=== PATIENT | male | born 1980 | race Caucasian/White ===

== ENCOUNTER 2023-11-28 15:05 | Emergency (ER) | payer OTHER, SELFPAY ==
--- NOTE | ~2023-11-28 | XR_ITS ---
EXAMINATION: XR clavicle RT DATE: 11/28/2023 15:42 INDICATION: Right clavicle injury post fall TECHNIQUE: AP and angled AP view of the right clavicle were obtained. COMPARISON: None. FINDINGS: There is a comminuted mid diaphyseal fracture of the right clavicle. There is 2.5 cm overriding of th e main medial and lateral fragments. The medial fragment is elevated by 2.5-3 similar relative to the lateral fragment There are 3 displaced and angulated intervening fragments, the largest of these ankita suring 4.2 cm in length. Right acromioclavicular joint space is normal. 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 Visualized portions of the lungs are clear. IMPRESSION: 1. Comminuted and displaced mid diaphyseal fracture of the right clavicle. Reviewed, dictated and finalized at location A.
[2023-11-28 15:24] VITALS: BP 142/83; PULSE 73; RESP 18; TEMP 36.9; O2SAT 100
--- NOTE | 2023-11-28 17:10 | ED.GENADULT ---
HPI - General Adult General Chief complaint: Fall Stated complaint: R Collar bone Time Seen by Provider: 11/28/23 16:26 History of Present Illness HPI narrative: Gavino Rousseau is a 43 y/o male who presents with reports of having a same level fall on to his right clavicle and now having pain to that area. Related Data Allergies Allergy/AdvReac Type Severity Reaction Status Date / Time No Known Allergies Allergy Verified 07/10/19 11:30 Review of Systems Review of Systems: All systems reviewed & are unremarkable except as noted in HPI and below PMFSH Social History Social History Gender identity (if verbalized by the patient): Male Exam Narrative: GENERAL: Well-appearing, well-nourished, and in no acute distress. HEAD: Normocephalic, atraumatic. EYES: PERRLA and EOMI. ENT: Nares clear, no rhinorrhea or epistaxis. Mucous membranes moist. Oropharynx without tonsillar hypertrophy exudate or other lesions. NECK: Supple. No adenopathy or masses. No carotid bruits or JVD CHEST: Clear to auscultation. No respiratory distress. No wheezes rales or rhonchi HEART: Regular rate and rhythm. No murmur heard. Normal peripheral pulses. ABDOMEN: Soft, nontender, nondistended, normal active bowel sounds. EXTREMITIES: Mild swelling over the right mid clavicle SKIN: Warm, dry, no rash. NEURO: No focal deficits. Alert and oriented x3. PSYCH: Normal mood and affect. Course Vital Signs Vital signs: Vital Signs Temperature 36.9 C 11/28/23 15:24 Pulse Rate 73 11/28/23 15:24 Respiratory Rate 18 11/28/23 15:24 Blood Pressure 142/83 H 11/28/23 15:24 Pulse Oximetry 100 11/28/23 15:24 Oxygen Delivery Room Air 11/28/23 15:24 Temperature 36.9 C 11/28/23 15:24 Pulse Rate 72 11/28/23 17:38 Respiratory Rate 16 11/28/23 17:38 Blood Pressure 136/81 11/28/23 17:38 Pulse Oximetry 100 11/28/23 17:38 Oxygen Delivery Room Air 11/28/23 15:24 Medical Decision Making [facility] Narrative Medical decision making narrative: 43 y/o male presents with pain to right clavicle after a ground level mechanical fall. Denies LOC / XR ?Comminuted and displaced mid diaphyseal fracture of the right clavicle. Right displaced clavicle fracture noted on xr - pt placed in arm sling and given pain medication Distal pulses present Neurovascular intact Plan to D/c with Naproxen BID/ [place] for severe pain VICENTE Close follow up with Orthopedic Return precautions provided Medical Records Medical records reviewed: Yes I reviewed the external patient's medical records. Vital Signs Vital Signs: Vital Signs Temperature 36.9 C 11/28/23 15:24 Pulse Rate 73 11/28/23 15:24 Respiratory Rate 18 11/28/23 15:24 Blood Pressure 142/83 H 11/28/23 15:24 Pulse Oximetry 100 11/28/23 15:24 Oxygen Delivery Room Air 11/28/23 15:24 Temperature 36.9 C 11/28/23 15:24 Pulse Rate 72 11/28/23 17:38 Respiratory Rate 16 11/28/23 17:38 Blood Pressure 136/81 11/28/23 17:38 Pulse Oximetry 100 11/28/23 17:38 Oxygen Delivery Room Air 11/28/23 15:24 Vitals reviewed by me. Imaging Data My impression: Impressions Clavicle X-Ray 11/28/23 15:44 IMPRESSION: 1. Comminuted and displaced mid diaphyseal fracture of the right clavicle. Discharge Plan Discharge Clinical Impression: Clavicle fracture, shaft Qualifiers: Encounter type: initial encounter Fracture type: closed Fracture alignment: displaced Laterality: right Qualified Code(s): S42.021A - Displaced fracture of shaft of right clavicle, initial encounter for closed fracture Patient Disposition: Home, Self-Care Condition: Stable Instructions: Antibiotic Form Additional Instructions: Continue to wear the arm sling Follow up with Orthopedics this week Continue to take Naproxen twice daily for pain You may take the [place] for severe pain Ice area of p
[2023-11-28] MEDS: NAPROXEN 500 MG TABLET PO (17:20)
[2023-11-28] MEDS: HYDROcodone/acetaminophen (*CRX) 5-325 MG TABLET 1 TAB PO (17:20)
[2023-11-28 17:38] VITALS: BP 136/81; PULSE 72; RESP 16; O2SAT 100
== END 2023-11-28 17:39 | disposition home or self-care (01) ==
PROVIDERS: Emergency Provider Nurse Practitioner Family; PCP Nurse Practitioner Family
DX: S42.021A Displaced fracture of shaft of right clavicle, initial encounter for closed fracture (principal); W18.30XA Fall on same level, unspecified, initial encounter
CPT/HCPCS: 73000; 99284; A4565; A9270

== ENCOUNTER 2023-12-04 00:25 | Day surgery (SDC) | payer OTHER, SELFPAY ==
[2023-11-30 11:02] VITALS: BMI 30.7
--- NOTE | 2023-11-30 11:04 | PC.NURSE ---
Report to the Outpatient Waiting Room, entrance under the green pavilion located off [facility], at time _1pm_ on date _[id number]_. Planned Procedure Time: _3pm_. Time changes happen often and if your time is changed the preop area will call you the afternoon before. - You and your visitor will be asked to self-screen and do not enter if you have any COVID symptoms. - A mask is optional within the hospital at this time. Patients may have clear liquids (water, carbonated beverages, clear teas, apple juice) until 3 hours prior to surgery with a maximum of 20 ounces. - No food from midnight until time of surgery Take the following medications with a SIP of water the morning of surgery: ____Percocet if needed. DO NOT STOP ANY OF YOUR OTHER PRESCRIPTION MEDICATIONS PRIOR TO SURGERY ?EXCEPT THE FOLLOWING Medications to discontinue per physician Nabumetone and Naproxen Date to take last dose___Stop now till after surgery. Please no make-up, nail salvadorean, hairspray, perfume, deodorant, or body powder the day of surgery. No jewelry (including any body piercings) or valuables the day of surgery, leave them at home. Please take a shower or bath the night before, or the morning of, surgery with an antibacterial soap. Wear comfortable, loose fitting clothing. - Jewelry must be removed prior to entering the operating room. Rings and piercings that are not removed may be cut off. - The hospital will not accept responsibility for valuables. - Please leave all valuables, including medications, at home the day of surgery. If you are going home after surgery, a licensed bicycle taxi driver must drive you home. - NO public transportation without another adult if you receive anesthesia. - We recommend that an adult stay with you for 24 hours following discharge. - We also recommend that you do not drive, make important decision, drink alcoholic beverages, or take any drugs that were not prescribed by your health care provider for at least 24 hours after your discharge time. Follow any additional instructions given to you from your surgeon. If you or anyone in your household have experienced Covid symptoms in the past week, please notify your surgeon or the nurse liaison at the phone number below for possible testing. Telephone instructions given to _Todd___and asked if any additional questions and then verbalized understanding. Patient advised to call surgeon office or pre surgery nurse liaison [phone] if any additional questions.
[2023-12-04] VITALS (8 sets, daily range): BP systolic 119–151; BP diastolic 79–96; PULSE 56–105; RESP 10–18; TEMP 36.3–37.7; O2SAT 94–100; BMI 30.2
--- NOTE | ~2023-12-04 | XR_ITS ---
EXAMINATION: XR surgery orthopedic DATE: 12/04/2023 16:47 INDICATION: ORIF right clavicle fracture TECHNIQUE: AP and 10 degree cephalad angled AP views of the right clavicle were obtained. COMPARISON: 11/28/2023 FINDINGS: Interval open reduction internal fixation of the prior comminuted and displaced right clavicle fractu re. Fracture is now fixed in near-anatomic alignment with a cephalad plate and screws. No other fract ures identified. Right acromioclavicular joint spaces are normal. Endotracheal tube tip 2.8 cm above the catherine. Mild opacities at the right lung base most likely atelectasis although differential inclu adolfo aspiration or pneumonia. IMPRESSION: 1. Near-anatomic alignment post open reduction plate and screw fixation of a comminuted extra-articul ar fracture of the right clavicle 2. Mild opacities at the right lung base which could represent atelectasis, aspiration or pneumonia. Reviewed, dictated and finalized at location A. IMPRESSION: 1. Near-anatomic alignment post open reduction plate and screw fixation of a co mminuted extra-articular fracture of the right clavicle 2. Mild opacities at the right lung base which could represent atelectasis, asp iration or pneumonia.
[2023-12-04] MEDS: LACTATED RINGERS 1,000 ML 30 ML IV CONT (12:45)
[2023-12-04] MEDS: ACETAMINOPHEN 500 MG TABLET 1000 MG PO (12:55)
[2023-12-04] MEDS: KETOROLAC 15 MG/ML VIAL (*BKC) IV PUSH (12:55)
--- NOTE | 2023-12-04 13:43 | WPDANESEPPF ---
Anes - Initial Pre Proc Eval Procedure: Operation Date: 12/04/23 14:15 Proposed Procedures p Open Reduction Internal Fixation Right Clavicle Fracture - Sarmad Oseguera MD Date/Time: 12/04/23 13:43 Surgeon: Sarmad Oseguera MD Pre Op Diagnosis: right midshaft displaced Clavicle Fracture Patient Data Age: 43 Gender: M Height: 1.68 m Weight: 85.1 kg Last Vital Signs Temp 99.9 F H 12/04/23 12:15 Pulse 59 L 12/04/23 12:15 Resp 16 12/04/23 12:15 BP 136/84 12/04/23 12:15 Pulse Ox 99 12/04/23 12:15 O2 Del Method Room Air 12/04/23 12:15 Allergies Allergy/AdvReac Type Severity Reaction Status Date / Time No Known Allergies Allergy Verified 12/04/23 12:59 Home Medications Medication Instructions Recorded Confirmed Type nabumetone 750 mg tablet 750 mg PO BID #20 tabs 07/10/19 12/04/23 Rx naproxen 500 mg tablet 500 mg PO BID #28 tabs 11/28/23 12/04/23 Rx eszopiclone 1 mg tablet 1 mg PO HS PRN Insomnia 11/30/23 11/30/23 History oxycodone-acetaminophen 5 mg-325 1 - 2 tablet PO Q4-6H PRN pain #40 11/30/23 12/04/23 Rx mg tablet (Percocet) tabs ropinirole 1 mg tablet 1 mg PO HS 11/30/23 11/30/23 History Patient hx anesthesia problems: none Family hx anesthesia problems: none Results Review: All pre-operative results and documents have been reviewed as part of the pre-operative evaluation. [facility] Past Medical History Medical History Closed right clavicular fracture (~11/28/23) Sleep apnea Social History Social History Smoking packs per day: 1.5 Smoking cigarettes per day: 30.0 Years smoked: 10 Smoking pack-years: 15.00 Smoking status: Former smoker Tobacco type: cigarettes Smoking end date: 11/29/13 Alcohol intake: former Substance use: former Substance use type: marijuana Other substance usage details: quit 2 weeks ago. Do You Feel Safe in your Home?: Yes Lack of Transportation: No Lack of Food: Never True Current Housing: I Have Housing Concerned About Future Housing: No Difficulty Paying Gas/Electric Bills: No Difficulty Paying for Meds: No Currently Unemployed: No Education: Bachelor's Degree Difficulty w/ Childcare or Family Care: No Living arrangements: with family Gender identity (if verbalized by the patient): Male Spiritual care concerns: No Anes - Eval Final PreProcedure Day of Procedure 12/04/23 13:43 Patient weight: normal Heart: regular rate and rhythm Lungs: clear to auscultation Airway: Mallampati scale and special considerations (Upper incisor is a cap. ) Neurological: alert and oriented Last oral intake: >/= 8 hours ASA classification: II Emergent: no Anesthetic plan: proceed Anesthesia type and monitoring: general ETT and standard monitoring Results Review: All pre-operative results and documents have been reviewed as part of the pre-operative evaluation. Pt is prev smoker, AILEEN on CPAP w excellent functional status. Informed Consent: The patient's anesthetic plan and its attendant risks and benefits were discussed with the patient/family/POA. Questions were solicited and answers provided to the satisfaction of the patient/family/POA.
--- NOTE | 2023-12-04 13:49 | WPDHPUPDATE1 ---
History and Physical Update Update Date/Time: 12/04/23 13:49 History and Physical has been reviewed, including an updated exam of the patient. There are NO changes in the patient's condition. Risks, benefits, and alternatives have been discussed and questions answered. Patient agrees to proceed with procedure.
[2023-12-04] MEDS: ceFAZolin 2 GM/D5W 50 ML 2 GM/50 ML BAG IVPB (14:13)
[2023-12-04] MEDS: BUPIVACAINE/EPINEPHRINE 0.5% 10 ML VIAL INFILTRATE (14:58)
[2023-12-04] MEDS: TRANEXAMIC ACID 1,000 MG/10 ML AMPUL 1000 MG IV PUSH (17:00)
--- NOTE | 2023-12-04 17:09 | P.OP_ITS ---
Procedure Note - Detailed Date of Procedure 12/04/23 Pre-op Diagnosis Right midshaft displaced Clavicle Fracture Post-op Diagnosis Same Procedure Performed ORIF right midshaft clavicle fracture. Surgeon Sarmad Oseguera MD Anesthesia General Findings Severe comminution. Limited bony contact. Bridge plating with lateral plate. Excellent bone quality. Description of Procedure The patient was given a general anesthetic. Preoperative antibiotics were administered. The patient was placed in the beach chair position. The shoulder was prepped and draped in usual sterile fashion exposing the clavicle widely. A transverse incision was created over the fracture site. Careful blunt dissection was brought down to the clavicle. The subcutaneous skin nerves were protected. Self-retaining retractors were placed. The fracture was cleared of hematoma and irrigated. Careful exposure of the fracture ends was accomplished without undue soft tissue stripping. The neurovascular structures were carefully protected throughout the procedure. Fracture was highly comminuted and and and contact was minimal. Near anatomic reduction was obtained with reduction forceps. The precontoured plate was applied. Excellent fixation was obtained with a combination of locking and nonlocking screws. Bridge plating technique was utilized across the comminuted middle segment. The lateral distal clavicle plate was selected to obtain secure lateral fixation. Postoperative x- ray confirmed appropriate screw lengths. The wound was irrigated and closed with layers using interrupted Vicryl and interrupted and running Monocryl suture followed by Steri-Strips. Sterile dressing was applied. The patient was brought to the recovery room in stable condition. There were no complications. Implants Acumed 10 hole distal lateral clavicle plate. Estimated Blood Loss 50 Drains No Packing No Pathology None sent Complications No immediate complications Condition Stable Disposition PACU [facility] Billing Surgery - Charge Forward: Surgery Billing
[2023-12-04] MEDS: ONDANSETRON INJ 4 MG/2 ML VIAL IV PUSH (17:28)
[2023-12-04] MEDS: fentaNYL CITRATE INJ (*CRX) 100 MCG/2 ML VIAL 25 MCG IV PUSH (17:46)
[2023-12-04] MEDS: oxyCODONE HCL (*CRX) 5 MG TAB IR PO (18:28)
== END 2023-12-04 18:50 | disposition home or self-care (01) ==
PROVIDERS: PCP Nurse Practitioner Family; Visit Provider Orthopaedic Surgery
PROC: (CPT 23515; principal; 2023-12-04 14:15)
DX: S42.021A Displaced fracture of shaft of right clavicle, initial encounter for closed fracture (principal); W01.0XXA Fall on same level from slipping, tripping and stumbling without subsequent striking against object, initial encounter; Z87.891 Personal history of nicotine dependence
CPT/HCPCS: 23515; 99199; A9270; C1713; J0690; J1100; J1170; J1885; J2250; J2405; J2704; J3010; J7120

== ENCOUNTER 2023-12-17 10:25 | Outpatient (CLI) | payer OTHER, SELFPAY ==
--- NOTE | ~2023-12-17 | XR_ITS ---
EXAM: XR clavicle RT DATE: 12/17/2023 10:54 HISTORY: Fracture of unspecified part of right clavicle F/U . COMPARISON: 11/28/2023. FINDINGS: Screw and plate fixation of the mildly comminuted right clavicular midshaft fracture into anatomic alignment. No hardware fracture or perihilar hardware lucency. No significant healing change s. The visualized lung parenchyma is clear IMPRESSION: Screw and plate fixation of the mildly comminuted right clavicular midshaft fracture into anatomic alignment. No radiographic evidence of hardware related complication. Reviewed, dictated and finalized at location K.
== END 2023-12-17 10:26 | disposition home or self-care (01) ==
LOC: ANHIMG 10:26
PROVIDERS: PCP Nurse Practitioner Family; Visit Provider Orthopaedic Surgery
DX: S42.021A Displaced fracture of shaft of right clavicle, initial encounter for closed fracture (principal); X58.XXXA Exposure to other specified factors, initial encounter
CPT/HCPCS: 73000

== ENCOUNTER 2024-01-15 09:31 | Outpatient (CLI) | payer OTHER, SELFPAY ==
--- NOTE | ~2024-01-15 | XR_ITS ---
XR clavicle RT Ordering provider: Sarmad Oseguera MD History: . Fracture of unspecified part of right clavicle SURG 6 WK AGO . Comparison: December 17, 2023 FINDINGS: BONES: Status post fixation of the right mid clavicular fracture by plate and screws. No change from previous examination seen. JOINT SPACES: Normal. No acromioclavicular separation. SOFT TISSUES: Normal. IMPRESSION: Status post fixation of the right mid clavicular fracture by plate and screws. No change from previou s examination seen. Reviewed, dictated and finalized at location A. IMPRESSION: Status post fixation of the right mid clavicular fracture by plate and screws. No change from previous examination seen.
== END 2024-01-15 09:32 | disposition home or self-care (01) ==
PROVIDERS: PCP Nurse Practitioner Family; Visit Provider Orthopaedic Surgery
DX: S42.001D Fracture of unspecified part of right clavicle, subsequent encounter for fracture with routine healing (principal); X58.XXXD Exposure to other specified factors, subsequent encounter
CPT/HCPCS: 73000

== ENCOUNTER 2024-02-18 10:15 | Outpatient (CLI) | payer OTHER, SELFPAY ==
--- NOTE | ~2024-02-18 | XR_ITS ---
XR clavicle RT Ordering provider: Sarmad Oseguera MD History: . 12 WEEK FU FROM [facility] . Comparison: January 15, 2024 FINDINGS: BONES: Fixation of a fracture in the midshaft of the right clavicle with plate and screws. JOINT SPACES: Normal. No acromioclavicular separation. SOFT TISSUES: Normal. IMPRESSION: Fixation of a fracture in the midshaft of the right clavicle with plate and screws. Reviewed, dictated and finalized at location A. IMPRESSION: Fixation of a fracture in the midshaft of the right clavicle with plate and scr ews.
== END 2024-02-18 10:16 | disposition home or self-care (01) ==
LOC: ANHIMG 10:20
PROVIDERS: PCP Nurse Practitioner Family; Visit Provider Orthopaedic Surgery
DX: S42.001A Fracture of unspecified part of right clavicle, initial encounter for closed fracture (principal); X58.XXXA Exposure to other specified factors, initial encounter
CPT/HCPCS: 73000